=== PATIENT | female | born 1940 | race Two or more races ===

== ENCOUNTER 2025-01-17 09:19 | Emergency (ER) | payer OTHER ==
[2025-01-17 09:33] VITALS: BP 129/58; PULSE 89; RESP 16; TEMP 99.7; BMI 36.0
[2025-01-17] MEDS: ALBUTEROL SO4 2.5/IPRATROPIUM 0.5 INH SOL 3 ML VIAL.NEB. NEB SCH (09:50)
[2025-01-17] MEDS ORDERED: methylPREDNISolone NA SUCC 125 MG/2 ML VIAL ONE (09:58)
[2025-01-17] MEDS: methylPREDNISolone NA SUCC 125 MG/2 ML VIAL IVPB ONE (10:22)
[2025-01-17 10:49] LABS: ABSOLUTE IMMATURE GRANULOCYTES 0.02 x10^3/uL (0.0-0.031); BASOPHILS # 0.03 x10^3/uL (0.01-0.08); EOSINOPHIL % 2.7 % (0.7-5.8); EOSINOPHILS # 0.19 x10^3/uL (0.04-0.36); HEMATOCRIT 41.6 % (34.1-44.9); HEMOGLOBIN 13.5 g/dL (11.2-15.7); MCHC 32.5 g/dl (32.2-35.5); MEAN CELL VOLUME 88.7 fl (79.4-94.8); MONOCYTE # 0.85 x10^3/uL (0.24-0.86); PLATELET COUNT 314 x10^3/uL (182-369)
[2025-01-17 11:17] LABS: POTASSIUM 4.2 mmol/L (3.5-5.1)
[2025-01-17 11:19] LABS: ALBUMIN 3.2 g/dl (3.4-5.0); BLOOD UREA NITROGEN 8.4 mg/dL (7-18); CALCIUM 9.4 mg/dL (8.5-10.1); MAGNESIUM 1.9 mg/dL (1.8-2.4)
[2025-01-17 11:22] LABS: CREATININE 0.9 mg/dL (0.55-1.3)
[2025-01-17 11:24] LABS: BILIRUBIN,TOTAL 0.5 mg/dL (0.2-1); TOT PROT 7.1 g/dl (6.4-8.2)
[2025-01-17] MEDS ORDERED: AZITHROMYCIN 500 MG TABLET ONE (12:05)
[2025-01-17] MEDS: AZITHROMYCIN 500 MG TABLET PO ONE (12:05)
== END 2025-01-17 12:23 | disposition home or self-care (01) ==
LOC: JER 09:19
PROC: 3E033GC Introduction of Other Therapeutic Substance into Peripheral Vein, Percutaneous Approach (ICD-10-PCS; principal; 2025-01-17)
PROC: 3E0F7GC Introduction of Other Therapeutic Substance into Respiratory Tract, Via Natural or Artificial Opening (ICD-10-PCS; 2025-01-17)
DX: J44.1 Chronic obstructive pulmonary disease with (acute) exacerbation (principal); R05.9 Cough, unspecified; R06.02 Shortness of breath; R07.81 Pleurodynia
CPT/HCPCS: 0241U-QW; 36415; 71045-TC-FY; 80053; 83735; 83880; 84484; 85025; 93005; 93010; 99285-25